=== PATIENT | male | born 1985 | race Two or more races ===

== ENCOUNTER 2022-11-16 09:20 | Emergency (ER) | payer MEDICAID ==
[~2022-11-16] VITALS: Ht 172.7 cm; Wt 122.7 kg
[2022-11-16 13:23] VITALS: BP 147/88
[2022-11-16] MEDS ORDERED: KETOROLAC TROMETH 30 MG/ML 1ML VIAL IM ONE (13:30)
[2022-11-16] MEDS ORDERED: IBUP600T28 PO (14:19)
== END 2022-11-16 14:30 | disposition home or self-care (01) ==
LOC: ER 09:20
DX: S86.912A Strain of unspecified muscle(s) and tendon(s) at lower leg level, left leg, initial encounter (principal); Z79.1 Long term (current) use of non-steroidal anti-inflammatories (NSAID); X58.XXXA Exposure to other specified factors, initial encounter; Y93.89 Activity, other specified; Y92.89 Other specified places as the place of occurrence of the external cause; Y99.8 Other external cause status
CPT/HCPCS: 73562; 96372; 99283; J1885

== ENCOUNTER 2025-06-05 23:07 | Emergency (ER) | payer MEDICAID ==
[~2025-06-05] VITALS: Ht 172.7 cm; Wt 108.0 kg
[~2025-06-05 23:07] MED LIST: IBUP1TAB5 PO
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
[2025-06-06 00:11] LABS: Hematocrit 39.0 % (41.0-53.0); Hemoglobin 13.2 g/dL (13.5-17.5); Mean Corpuscular Hemoglobin 29.8 pg (28.0-32.0); Mean Corpuscular Volume 88.2 fL (80.0-100.0); Nucleated Red Blood Cells % 0.1 %
[2025-06-06 00:25] LABS: Alanine Aminotransferase 30 U/L (7-40); Albumin 4.3 g/dL (3.2-4.8); Anion Gap 9 (5-15); BUN/Creatinine Ratio 12.4 (10.0-20.0); Bilirubin, Total 0.3 mg/dL (0.2-1.0); Blood Urea Nitrogen 13 mg/dL (9-23); Calcium 9.2 mg/dL (8.7-10.4); Carbon Dioxide 30 mmol/L (20-31); Chloride 102 mmol/L (98-107); Glucose 97 mg/dL (74-106); Potassium 4.6 mmol/L (3.5-5.1); Sodium 141 mmol/L (136-145); Total Protein 7.7 g/dL (5.7-8.2)
[2025-06-06 00:33] LABS: Alkaline Phosphatase 161 U/L (46-116); Lipase 60 U/L (12-53)
[2025-06-06] MEDS: SODIUM CHLORIDE 0.9% 1,000 ML IVB ONE (00:57)
[2025-06-06 01:02] VITALS: TEMP 98.1; O2SAT 100
[2025-06-06] MEDS: ONDANSETRON HCL 4 MG/2 ML VIAL IV ONE (01:06)
[2025-06-06 01:07] VITALS: BP 118/77; PULSE 65; RESP 19
[2025-06-06] MEDS: MORPHINE SULFATE 4 MG/ML SYR/VIAL IV ONE (01:07)
[2025-06-06] MEDS: IOHEXOL 300 MG/ML 100ML BOTTLE IJ ONE (01:13)
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
[2025-06-06] MEDS ORDERED: ZOFR4T PO (02:51)
[2025-06-06] MEDS ORDERED: HYDR-4902 PO (02:51)
[2025-06-06] MEDS: HYDROcodone-ACET 10/325MG TAB PO ONE (03:20)
== END 2025-06-06 03:19 | disposition home or self-care (01) ==
LOC: ER 23:07
DX: K85.90 Acute pancreatitis without necrosis or infection, unspecified (principal); Z90.49 Acquired absence of other specified parts of digestive tract; V43.52XA Car driver injured in collision with other type car in traffic accident, initial encounter; Y93.I9 Activity, other involving external motion; Y92.488 Other paved roadways as the place of occurrence of the external cause; Y99.8 Other external cause status
CPT/HCPCS: 36415; 74177; 80053; 83690; 85025; 96361; 96374; 96375; 99285; J2270; J2405; J7030; Q9967